=== PATIENT | male | born 1975 | race African-American/Black ===

== ENCOUNTER 2021-11-04 21:47 | Inpatient (IN) ==
[2021-11-04 22:29] LABS: Basophils # 0.1 10*3/uL (0.0-0.2); Basophils % 0.5 % (0.0-0.8); Eosinophils # 0.2 10*3/uL (0.0-0.87); Eosinophils % 1.8 % (0.00-10.9); Hematocrit 42.2 VOL% (42.0-52.0); Immature Granulocytes % 0.3 %; Immature Granulocytes Absolute 0.04 #; Lymphocytes # 3.7 10*3/uL (1.4-4.0); Lymphocytes % 32.1 % (21.2-54.2); Mean Corpuscular HGB Conc 33.2 GM/DL (32-36); Mean Corpuscular Volume 91.7 FL (87-102); Mean Platelet Volume 10.9 FL (9.6-12.0); Monocytes # 0.9 10*3/uL (0.11-0.8); Monocytes % 7.7 % (1.7-12.7); Neutrophils % 57.6 % (38.7-73.9); Platelet Count 277 T/CUMM (130-400); Red Cell Distribution Width 15.2 % (9.3-17.3); White Blood Count 11.6 T/CUMM (4-12)
[2021-11-04] MEDS ORDERED: MORPHINE 2 MG/1 ML SYRINGE IV STA (22:46)
[2021-11-04] MEDS ORDERED: ONDANSETRON 4 MG/2 ML VIAL IV ONE (22:47)
[2021-11-04 22:51] LABS: Albumin 3.4 G/DL (3.4-5.0); Bilirubin,Total 0.5 MG/DL (0.20-1.00); Calcium 9.4 MG/DL (8.5-10.1); Potassium 3.8 MMOL/L (3.5-5.1); Total Protein 8.7 G/DL (6.4-8.2)
[2021-11-04] MEDS ORDERED: VANCOMYCIN INJ 1,000 MG in SODIUM CHLORIDE 0.9% 250 ML IV STA (23:16)
[2021-11-04] MEDS ORDERED: PIPERACILLIN/TAZOBACTAM 3,375 MG in SODIUM CHLORIDE 0.9% 100 ML IV STA (23:16)
[2021-11-05] MEDS ORDERED: ONDANSETRON 4 MG/2 ML VIAL IV PRN (00:36)
[2021-11-05] MEDS ORDERED: DEXTROSE 50% 25 GM/50 ML VIAL IV PRN (00:36)
[2021-11-05] MEDS ORDERED: ACETAMINOPHEN 325 MG TABLET PO PRN (00:36)
[2021-11-05] MEDS ORDERED: GLUCAGON 1 MG VIAL IM PRN (00:36)
[2021-11-05] MEDS ORDERED: DEXTROSE 10% 250 ML BAG IV PRN (00:36)
[2021-11-05] MEDS ORDERED: carvediloL 3.125 MG TABLET PO STA (00:39)
[2021-11-05] MEDS ORDERED: oxyCODONE/ACETAMINOPHEN 5-325 MG TABLET PO PRN (00:40)
[2021-11-05] MEDS ORDERED: LACTATED RINGERS 1,000 ML IV SCH (01:00)
[2021-11-05 04:32] LABS: Basophils # 0.1 10*3/uL (0.0-0.2); Basophils % 0.6 % (0.0-0.8); Eosinophils # 0.2 10*3/uL (0.0-0.87); Eosinophils % 2.7 % (0.00-10.9); Hematocrit 39.9 VOL% (42.0-52.0); Immature Granulocytes % 0.3 %; Immature Granulocytes Absolute 0.03 #; Lymphocytes # 3.2 10*3/uL (1.4-4.0); Lymphocytes % 35.3 % (21.2-54.2); Mean Corpuscular HGB Conc 32.6 GM/DL (32-36); Mean Corpuscular Volume 92.8 FL (87-102); Mean Platelet Volume 10.6 FL (9.6-12.0); Monocytes # 0.8 10*3/uL (0.11-0.8); Monocytes % 8.9 % (1.7-12.7); Neutrophils % 52.2 % (38.7-73.9); Platelet Count 252 T/CUMM (130-400); Red Cell Distribution Width 15.3 % (9.3-17.3)
[2021-11-05 05:02] LABS: Calcium 8.7 MG/DL (8.5-10.1); Osmolality,Calculated 280.4 MOS/KG (273-304); Potassium 4.3 MMOL/L (3.5-5.1)
[2021-11-05] MEDS: PIPERACILLIN/TAZOBACTAM 3,375 MG in SODIUM CHLORIDE 0.9% 100 ML IV SCH ×2 (06:07→14:26)
[2021-11-05] MEDS: INSULIN LISPRO 100 UNIT/ML SUBCUT SCH ×2 (08:03→16:53)
[2021-11-05] MEDS: DOCUSATE SODIUM 100 MG CAPSULE PO SCH ×2 (09:08→22:04)
[2021-11-05] MEDS: amLODIPine 10 MG TABLET PO SCH (09:08)
[2021-11-05] MEDS: carvediloL 3.125 MG TABLET PO SCH ×2 (09:08→22:03)
[2021-11-05] MEDS: LOSARTAN 50 MG TABLET PO SCH (09:08)
[2021-11-05] MEDS: VANCOMYCIN INJ 2,000 MG in SODIUM CHLORIDE 0.9% 500 ML IV SCH ×2 (10:04→22:05)
[2021-11-05] MEDS ORDERED: SODIUM CHLORIDE 0.9% 100 ML IV ONE (14:23)
[2021-11-05] MEDS ORDERED: PIPERACILLIN/TAZOBACTAM 3,375 MG VIAL IV ONE (14:23)
[2021-11-05] MEDS: PREGABALIN 50 MG CAPSULE PO SCH ×2 (15:05→22:04)
[2021-11-05] MEDS: FUROSEMIDE 40 MG TABLET PO SCH (22:03)
[2021-11-05] MEDS: BACLOFEN 10 MG TABLET PO SCH (22:04)
[2021-11-05] MEDS: oxyCODONE IR 5 MG TABLET PO PRN (22:04)
[2021-11-06] MEDS: PIPERACILLIN/TAZOBACTAM 3,375 MG in SODIUM CHLORIDE 0.9% 100 ML IV SCH ×3 (01:02→17:28)
[2021-11-06] MEDS: oxyCODONE IR 5 MG TABLET PO PRN ×2 (04:11→21:28)
[2021-11-06 05:14] LABS: Basophils # 0.1 10*3/uL (0.0-0.2); Basophils % 0.7 % (0.0-0.8); Eosinophils # 0.4 10*3/uL (0.0-0.87); Eosinophils % 4.6 % (0.00-10.9); Hematocrit 39.8 VOL% (42.0-52.0); Hemoglobin 13.1 GM/DL (14.0-18.0); Immature Granulocytes % 0.3 %; Immature Granulocytes Absolute 0.03 #; Lymphocytes # 3.7 10*3/uL (1.4-4.0); Lymphocytes % 40.9 % (21.2-54.2); Mean Corpuscular HGB Conc 32.9 GM/DL (32-36); Mean Corpuscular Volume 93.2 FL (87-102); Mean Platelet Volume 10.9 FL (9.6-12.0); Monocytes # 0.8 10*3/uL (0.11-0.8); Monocytes % 9.1 % (1.7-12.7); Neutrophils % 44.4 % (38.7-73.9); Platelet Count 261 T/CUMM (130-400); Red Blood Count 4.27 MC/CUMM (3.8-5.5); Red Cell Distribution Width 15.4 % (9.3-17.3)
[2021-11-06 05:37] LABS: Calcium 8.9 MG/DL (8.5-10.1); Osmolality,Calculated 276.5 MOS/KG (273-304); Potassium 4.1 MMOL/L (3.5-5.1)
[2021-11-06 05:58] LABS: Risk Ratio 2.18
[2021-11-06] MEDS: ATORVASTATIN 10 MG TABLET PO SCH (08:38)
[2021-11-06] MEDS: LOSARTAN 50 MG TABLET PO SCH (08:38)
[2021-11-06] MEDS: DOCUSATE SODIUM 100 MG CAPSULE PO SCH ×2 (08:38→21:27)
[2021-11-06] MEDS: PREGABALIN 50 MG CAPSULE PO SCH ×2 (08:38→17:27)
[2021-11-06] MEDS: BACLOFEN 10 MG TABLET PO SCH ×2 (08:38→21:27)
[2021-11-06] MEDS: carvediloL 3.125 MG TABLET PO SCH ×2 (08:38→21:27)
[2021-11-06] MEDS: amLODIPine 10 MG TABLET PO SCH (08:39)
[2021-11-06] MEDS: FUROSEMIDE 40 MG TABLET PO SCH ×2 (08:44→21:27)
[2021-11-06] MEDS: INSULIN LISPRO 100 UNIT/ML SUBCUT SCH ×2 (08:48→16:46)
[2021-11-06] MEDS: VANCOMYCIN INJ 2,000 MG in SODIUM CHLORIDE 0.9% 500 ML IV SCH ×2 (09:45→21:29)
[2021-11-06] MEDS ORDERED: hydrALAZINE 20 MG/1 ML VIAL IV PRN (12:08)
[2021-11-06] MEDS: PREGABALIN 100 MG CAPSULE PO SCH (21:28)
[2021-11-06] MEDS: ENOXAPARIN 40 MG/0.4 ML SYRINGE SUBCUT SCH (21:28)
[2021-11-07] MEDS: PIPERACILLIN/TAZOBACTAM 3,375 MG in SODIUM CHLORIDE 0.9% 100 ML IV SCH ×3 (00:33→17:15)
[2021-11-07 06:20] LABS: Basophils # 0.1 10*3/uL (0.0-0.2); Basophils % 0.9 % (0.0-0.8); Eosinophils # 0.5 10*3/uL (0.0-0.87); Eosinophils % 5.7 % (0.00-10.9); Hemoglobin 13.3 GM/DL (14.0-18.0); Immature Granulocytes % 0.2 %; Immature Granulocytes Absolute 0.02 #; Lymphocytes # 3.9 10*3/uL (1.4-4.0); Lymphocytes % 47.6 % (21.2-54.2); Mean Corpuscular HGB Conc 32.4 GM/DL (32-36); Mean Platelet Volume 11.2 FL (9.6-12.0); Monocytes # 0.6 10*3/uL (0.11-0.8); Monocytes % 6.8 % (1.7-12.7); Neutrophils % 38.8 % (38.7-73.9); Platelet Count 262 T/CUMM (130-400); Red Blood Count 4.41 MC/CUMM (3.8-5.5); Red Cell Distribution Width 15.2 % (9.3-17.3); White Blood Count 8.2 T/CUMM (4-12)
[2021-11-07] MEDS: PANTOPRAZOLE 40 MG TABLET PO SCH (06:29)
[2021-11-07 06:36] LABS: Calcium 9.1 MG/DL (8.5-10.1); Osmolality,Calculated 275.8 MOS/KG (273-304); Potassium 3.7 MMOL/L (3.5-5.1)
[2021-11-07 07:23] LABS: Sedimentation Rate-Westergren 67 MM/HR (0-15)
[2021-11-07] MEDS: BACLOFEN 10 MG TABLET PO SCH ×2 (08:55→20:58)
[2021-11-07] MEDS: FUROSEMIDE 40 MG TABLET PO SCH ×2 (08:55→20:58)
[2021-11-07] MEDS: LOSARTAN 50 MG TABLET PO SCH (08:56)
[2021-11-07] MEDS: PREGABALIN 100 MG CAPSULE PO SCH ×3 (08:56→20:58)
[2021-11-07] MEDS: INSULIN LISPRO 100 UNIT/ML SUBCUT SCH ×2 (08:56→17:15)
[2021-11-07] MEDS: carvediloL 3.125 MG TABLET PO SCH ×2 (08:56→20:58)
[2021-11-07] MEDS: amLODIPine 10 MG TABLET PO SCH (08:56)
[2021-11-07] MEDS: DOCUSATE SODIUM 100 MG CAPSULE PO SCH ×2 (08:56→20:58)
[2021-11-07] MEDS: ATORVASTATIN 10 MG TABLET PO SCH (08:56)
[2021-11-07] MEDS: VANCOMYCIN INJ 2,000 MG in SODIUM CHLORIDE 0.9% 500 ML IV SCH ×2 (12:33→23:25)
[2021-11-07] MEDS: oxyCODONE IR 5 MG TABLET PO PRN (20:59)
[2021-11-07] MEDS: ENOXAPARIN 40 MG/0.4 ML SYRINGE SUBCUT SCH (20:59)
[2021-11-08] MEDS: PIPERACILLIN/TAZOBACTAM 3,375 MG in SODIUM CHLORIDE 0.9% 100 ML IV SCH ×3 (01:07→17:33)
[2021-11-08 05:13] LABS: Basophils # 0.1 10*3/uL (0.0-0.2); Basophils % 0.7 % (0.0-0.8); Eosinophils # 0.4 10*3/uL (0.0-0.87); Eosinophils % 4.6 % (0.00-10.9); Hematocrit 41.2 VOL% (42.0-52.0); Hemoglobin 13.2 GM/DL (14.0-18.0); Immature Granulocytes % 0.1 %; Immature Granulocytes Absolute 0.01 #; Lymphocytes # 3.2 10*3/uL (1.4-4.0); Lymphocytes % 37.8 % (21.2-54.2); Mean Corpuscular Volume 93.4 FL (87-102); Mean Platelet Volume 11.5 FL (9.6-12.0); Monocytes # 0.9 10*3/uL (0.11-0.8); Monocytes % 10.1 % (1.7-12.7); Neutrophils % 46.7 % (38.7-73.9); Platelet Count 250 T/CUMM (130-400); Red Blood Count 4.41 MC/CUMM (3.8-5.5); Red Cell Distribution Width 15.3 % (9.3-17.3); White Blood Count 8.5 T/CUMM (4-12)
[2021-11-08 05:36] LABS: Calcium 8.8 MG/DL (8.5-10.1); Osmolality,Calculated 284.3 MOS/KG (273-304)
[2021-11-08] MEDS: PANTOPRAZOLE 40 MG TABLET PO SCH (05:38)
[2021-11-08] MEDS: ATORVASTATIN 10 MG TABLET PO SCH (08:34)
[2021-11-08] MEDS: DOCUSATE SODIUM 100 MG CAPSULE PO SCH ×2 (08:34→21:47)
[2021-11-08] MEDS: PREGABALIN 100 MG CAPSULE PO SCH ×3 (08:34→21:46)
[2021-11-08] MEDS: LOSARTAN 50 MG TABLET PO SCH (08:34)
[2021-11-08] MEDS: BACLOFEN 10 MG TABLET PO SCH ×2 (08:34→21:46)
[2021-11-08] MEDS: amLODIPine 10 MG TABLET PO SCH (08:34)
[2021-11-08] MEDS: carvediloL 3.125 MG TABLET PO SCH ×2 (08:34→17:33)
[2021-11-08] MEDS: FUROSEMIDE 40 MG TABLET PO SCH ×2 (08:35→21:46)
[2021-11-08] MEDS: INSULIN LISPRO 100 UNIT/ML SUBCUT SCH ×2 (08:35→17:33)
[2021-11-08] MEDS: APIXABAN 5 MG TABLET PO SCH ×2 (08:35→21:46)
[2021-11-08] MEDS: VANCOMYCIN INJ 2,000 MG in SODIUM CHLORIDE 0.9% 500 ML IV SCH (09:42)
[2021-11-08] MEDS ORDERED: ZINC OXIDE PASTE 113 GM TUBE TOP PRN (13:02)
[2021-11-08] MEDS: oxyCODONE IR 5 MG TABLET PO PRN (21:46)
[2021-11-08] MEDS: NEOMYCIN/POLYMYXIN/BACITRACIN OINT 0.9 GM PACK TOP SCH (23:10)
[2021-11-09] MEDS: PIPERACILLIN/TAZOBACTAM 3,375 MG in SODIUM CHLORIDE 0.9% 100 ML IV SCH ×2 (01:59→09:14)
[2021-11-09 05:43] LABS: Basophils # 0.1 10*3/uL (0.0-0.2); Basophils % 0.8 % (0.0-0.8); Eosinophils # 0.3 10*3/uL (0.0-0.87); Eosinophils % 3.1 % (0.00-10.9); Hematocrit 41.9 VOL% (42.0-52.0); Hemoglobin 13.5 GM/DL (14.0-18.0); Immature Granulocytes % 0.2 %; Immature Granulocytes Absolute 0.02 #; Lymphocytes # 3.6 10*3/uL (1.4-4.0); Mean Corpuscular HGB Conc 32.2 GM/DL (32-36); Mean Corpuscular Volume 94.2 FL (87-102); Mean Platelet Volume 11.6 FL (9.6-12.0); Monocytes # 0.8 10*3/uL (0.11-0.8); Monocytes % 8.8 % (1.7-12.7); Neutrophils % 47.1 % (38.7-73.9); Platelet Count 263 T/CUMM (130-400); Red Blood Count 4.45 MC/CUMM (3.8-5.5); Red Cell Distribution Width 15.4 % (9.3-17.3)
[2021-11-09 06:06] LABS: Calcium 9.3 MG/DL (8.5-10.1); Osmolality,Calculated 275.8 MOS/KG (273-304); Potassium 3.7 MMOL/L (3.5-5.1)
[2021-11-09] MEDS: PANTOPRAZOLE 40 MG TABLET PO SCH (06:27)
[2021-11-09] MEDS: INSULIN LISPRO 100 UNIT/ML SUBCUT SCH ×2 (09:02→17:38)
[2021-11-09] MEDS: LOSARTAN 50 MG TABLET PO SCH (09:03)
[2021-11-09] MEDS: ATORVASTATIN 10 MG TABLET PO SCH (09:03)
[2021-11-09] MEDS: NEOMYCIN/POLYMYXIN/BACITRACIN OINT 0.9 GM PACK TOP SCH ×2 (09:03→20:36)
[2021-11-09] MEDS: BACLOFEN 10 MG TABLET PO SCH ×2 (09:03→20:35)
[2021-11-09] MEDS: DOCUSATE SODIUM 100 MG CAPSULE PO SCH ×2 (09:03→20:36)
[2021-11-09] MEDS: PREGABALIN 100 MG CAPSULE PO SCH ×3 (09:03→20:35)
[2021-11-09] MEDS: amLODIPine 10 MG TABLET PO SCH (09:03)
[2021-11-09] MEDS: FUROSEMIDE 40 MG TABLET PO SCH ×2 (09:03→20:35)
[2021-11-09] MEDS: APIXABAN 5 MG TABLET PO SCH ×2 (09:03→20:35)
[2021-11-09] MEDS: carvediloL 3.125 MG TABLET PO SCH ×2 (09:03→18:13)
[2021-11-09] MEDS: oxyCODONE IR 5 MG TABLET PO PRN ×3 (09:10→20:45)
[2021-11-09] MEDS: cefTRIAXone 2,000 MG in SODIUM CHLORIDE 0.9% 100 ML IV SCH (11:49)
[2021-11-10 05:25] LABS: Basophils # 0.1 10*3/uL (0.0-0.2); Basophils % 0.6 % (0.0-0.8); Eosinophils # 0.3 10*3/uL (0.0-0.87); Hematocrit 43.1 VOL% (42.0-52.0); Hemoglobin 13.6 GM/DL (14.0-18.0); Immature Granulocytes % 0.4 %; Immature Granulocytes Absolute 0.04 #; Lymphocytes # 3.7 10*3/uL (1.4-4.0); Lymphocytes % 34.9 % (21.2-54.2); Mean Corpuscular HGB Conc 31.6 GM/DL (32-36); Mean Corpuscular Volume 94.1 FL (87-102); Mean Platelet Volume 11.5 FL (9.6-12.0); Monocytes % 9.1 % (1.7-12.7); Platelet Count 238 T/CUMM (130-400); Red Blood Count 4.58 MC/CUMM (3.8-5.5); Red Cell Distribution Width 15.6 % (9.3-17.3); White Blood Count 10.5 T/CUMM (4-12)
[2021-11-10] MEDS: PANTOPRAZOLE 40 MG TABLET PO SCH (05:35)
[2021-11-10 05:41] LABS: Osmolality,Calculated 279.7 MOS/KG (273-304); Potassium 3.8 MMOL/L (3.5-5.1)
[2021-11-10] MEDS: oxyCODONE IR 5 MG TABLET PO PRN ×3 (05:47→21:50)
[2021-11-10] MEDS: INSULIN LISPRO 100 UNIT/ML SUBCUT SCH ×2 (07:54→17:23)
[2021-11-10] MEDS: DOCUSATE SODIUM 100 MG CAPSULE PO SCH ×2 (09:00→21:50)
[2021-11-10] MEDS: NEOMYCIN/POLYMYXIN/BACITRACIN OINT 0.9 GM PACK TOP SCH ×2 (09:00→21:53)
[2021-11-10] MEDS: amLODIPine 10 MG TABLET PO SCH (09:00)
[2021-11-10] MEDS: FUROSEMIDE 40 MG TABLET PO SCH ×2 (09:00→21:50)
[2021-11-10] MEDS: BACLOFEN 10 MG TABLET PO SCH ×2 (09:00→21:50)
[2021-11-10] MEDS: PREGABALIN 100 MG CAPSULE PO SCH ×3 (09:00→21:52)
[2021-11-10] MEDS: APIXABAN 5 MG TABLET PO SCH ×2 (09:01→21:50)
[2021-11-10] MEDS: LOSARTAN 50 MG TABLET PO SCH (09:01)
[2021-11-10] MEDS: carvediloL 3.125 MG TABLET PO SCH ×2 (09:01→17:22)
[2021-11-10] MEDS: cefTRIAXone 2,000 MG in SODIUM CHLORIDE 0.9% 100 ML IV SCH (10:31)
[2021-11-10] MEDS ORDERED: fentaNYL 25 MCG/HR PATCH TRANSDERM SCH (18:30)
[2021-11-10] MEDS ORDERED: TUBERCULIN SKIN TEST 0.1 ML SYRINGE INTRADERM ONE (20:51)
[2021-11-11 05:44] LABS: Basophils # 0.1 10*3/uL (0.0-0.2); Basophils % 0.6 % (0.0-0.8); Eosinophils # 0.4 10*3/uL (0.0-0.87); Eosinophils % 4.4 % (0.00-10.9); Hematocrit 39.8 VOL% (42.0-52.0); Hemoglobin 12.7 GM/DL (14.0-18.0); Immature Granulocytes % 0.4 %; Immature Granulocytes Absolute 0.04 #; Lymphocytes # 3.8 10*3/uL (1.4-4.0); Lymphocytes % 39.4 % (21.2-54.2); Mean Corpuscular HGB Conc 31.9 GM/DL (32-36); Mean Corpuscular Volume 94.5 FL (87-102); Mean Platelet Volume 11.2 FL (9.6-12.0); Monocytes % 10.7 % (1.7-12.7); Neutrophils % 44.5 % (38.7-73.9); Platelet Count 203 T/CUMM (130-400); Red Blood Count 4.21 MC/CUMM (3.8-5.5); Red Cell Distribution Width 15.6 % (9.3-17.3); White Blood Count 9.6 T/CUMM (4-12)
[2021-11-11 06:03] LABS: Calcium 9.2 MG/DL (8.5-10.1); Potassium 3.8 MMOL/L (3.5-5.1)
[2021-11-11] MEDS: PANTOPRAZOLE 40 MG TABLET PO SCH (06:10)
[2021-11-11] MEDS: oxyCODONE IR 5 MG TABLET PO PRN (06:10)
[2021-11-11] MEDS: DOCUSATE SODIUM 100 MG CAPSULE PO SCH (08:55)
[2021-11-11] MEDS: amLODIPine 10 MG TABLET PO SCH (08:55)
[2021-11-11] MEDS: APIXABAN 5 MG TABLET PO SCH (08:55)
[2021-11-11] MEDS: FUROSEMIDE 40 MG TABLET PO SCH (08:55)
[2021-11-11] MEDS: PREGABALIN 100 MG CAPSULE PO SCH ×2 (08:55→15:55)
[2021-11-11] MEDS: carvediloL 3.125 MG TABLET PO SCH ×2 (08:55→17:30)
[2021-11-11] MEDS: LOSARTAN 50 MG TABLET PO SCH (08:55)
[2021-11-11] MEDS: NEOMYCIN/POLYMYXIN/BACITRACIN OINT 0.9 GM PACK TOP SCH (08:56)
[2021-11-11] MEDS: INSULIN LISPRO 100 UNIT/ML SUBCUT SCH ×2 (08:57→17:31)
[2021-11-11] MEDS: BACLOFEN 10 MG TABLET PO SCH (09:03)
[2021-11-11] MEDS: cefTRIAXone 2,000 MG in SODIUM CHLORIDE 0.9% 100 ML IV SCH (09:30)
[2021-11-11] MEDS ORDERED: CEFEPIME 2,000 MG in SODIUM CHLORIDE 0.9% 100 ML IV SCH (10:30)
[2021-11-11 16:40] VITALS: BP 109/53
== END 2021-11-11 18:14 | DRG 638 ==
LOC: EDUNIT# → EDBD → N.ED 21:47 → N.EDINP 21:47 → SUATTDRO 11-05 00:25 → N.EDINP 11-05 15:15 → N.3E 11-05 15:33
PROVIDERS: ADMIT Internal Medicine; ATTEND Internal Medicine